=== PATIENT | male | born 2000 | race Hispanic/Latino ===

== ENCOUNTER 2021-10-08 15:27 | Emergency (ER) | payer OTHER ==
[~2021-10-08] VITALS: Ht 180.3 cm; Wt 80.9 kg
[2021-10-08] MEDS ORDERED: BENZ200C70 PO (20:39)
[2021-10-08] MEDS ORDERED: NAPR-837 PO (20:39)
[2021-10-08 21:15] VITALS: BP 121/83
== END 2021-10-08 21:17 | disposition home or self-care (01) ==
LOC: M ED 15:27
DX: U07.1 COVID-19 (principal); R07.9 Chest pain, unspecified

== ENCOUNTER 2022-01-23 14:41 | Inpatient (IN) | payer OTHER ==
[~2022-01-23] VITALS: Ht 180.3 cm; Wt 90.0 kg
[~2022-01-23 14:41] MED LIST: BENZ200C70 PO; NAPR-837 PO
[2022-01-23 15:47] LABS: HEMATOCRIT 43.3 % (42.0-52.0); HEMOGLOBIN 14.4 g/dl (13.5-17.5); MEAN CORPUSCULAR HEMOGLOBIN 29.1 pg (27.0-33.0); MEAN CORPUSCULAR HGB CONC 33.3 g/dl (32.0-36.5); MEAN CORPUSCULAR VOLUME 87.7 fl (80.0-96.0); PLATELET COUNT, AUTOMATED 283 10^3/uL (150-450); RED BLOOD COUNT 4.94 10^6/uL (4.30-6.10); WHITE BLOOD COUNT 6.9 10^3/uL (4.0-10.0)
[2022-01-23 16:16] LABS: AMPHETAMINES LEVEL URINE NEGATIVE (NEGATIVE); BARBITURATES URINE NEGATIVE (NEGATIVE); BENZODIAZEPINES URINE NEGATIVE (NEGATIVE); CANNABINOIDS URINE NEGATIVE (NEGATIVE); COCAINE METABOLITE URINE NEGATIVE (NEGATIVE); METHADONE URINE NEGATIVE (NEGATIVE); OPIATES URINE NEGATIVE (NEGATIVE); PHENCYCLIDINE URINE NEGATIVE (NEGATIVE)
[2022-01-23 16:39] LABS: ACETAMINOPHEN LEVEL < 2.0 UG/ML (10.0-30.0); ALBUMIN 4.2 GM/DL (3.2-5.2); ALT/SGPT 33 U/L (12-78); BILIRUBIN,DIRECT < 0.1 MG/DL (0.0-0.2); BILIRUBIN,TOTAL 0.2 MG/DL (0.2-1.0); BLOOD UREA NITROGEN 13 MG/DL (7-18); CALCIUM LEVEL 9.2 MG/DL (8.5-10.1); CARBON DIOXIDE LEVEL 31 MEQ/L (21-32); CHLORIDE LEVEL 102 MEQ/L (98-107); ETHYL ALCOHOL (ETHANOL) < 0.003 % (0.000-0.010); GLOMERULAR FILTRATION RATE > 60.0 (>60); GLUCOSE, FASTING 92 MG/DL (70-100); SALICYLATE LEVEL < 1.7 MG/DL (5.0-30.0); SODIUM LEVEL 137 MEQ/L (136-145); TOTAL PROTEIN 8.3 GM/DL (6.4-8.2)
[2022-01-23 17:38] LABS: RSV AMPLIFICATION NEGATIVE (NEGATIVE)
[2022-01-23] MEDS ORDERED: HOME MED LIST COMPLETE! XX SCH (18:15)
[2022-01-23] MEDS ORDERED: ACETAMINOPHEN TAB 650MG DOSE (2X325MG) PO PRN (20:05)
[2022-01-23] MEDS ORDERED: MOM 30ML SUSPENSION UDC PO PRN (20:05)
[2022-01-23] MEDS ORDERED: MAALOX 30 ML SUSP *UDC PO PRN (20:05)
[2022-01-23 22:18] VITALS: BP 122/64
[2022-01-23] MEDS: traZODone 50 MG TAB PO PRN (22:25)
[2022-01-24 06:18] VITALS: BP 114/59
[2022-01-24] MEDS: CitaloPRAM (CeleXA) 20 MG TAB PO SCH (14:12)
[2022-01-24 17:01] VITALS: BP 113/55
[2022-01-24] MEDS: traZODone 50 MG TAB PO PRN (20:31)
[2022-01-25 06:31] VITALS: BP 102/50
[2022-01-25] MEDS: CitaloPRAM (CeleXA) 20 MG TAB PO SCH (09:20)
[2022-01-25 16:37] VITALS: BP 122/59
[2022-01-25] MEDS: traZODone 50 MG TAB PO PRN (19:52)
[2022-01-26 06:27] VITALS: BP 123/56
[2022-01-26] MEDS: CitaloPRAM (CeleXA) 20 MG TAB PO SCH (09:32)
[2022-01-26 18:51] VITALS: BP 127/68
[2022-01-26] MEDS: traZODone 50 MG TAB PO PRN (20:17)
[2022-01-27 06:38] VITALS: BP 122/64
[2022-01-27] MEDS ORDERED: TRAZ-252 PO (08:32)
[2022-01-27] MEDS ORDERED: CELE20TA PO (08:32)
[2022-01-27] MEDS: CitaloPRAM (CeleXA) 20 MG TAB PO SCH (09:30)
== END 2022-01-27 12:53 | disposition home or self-care (01) | DRG 885 ==
LOC: M ED 14:41 → M ED INP 20:06 → M PSY 21:56
PROVIDERS: ADMIT Psychiatry & Neurology Psychiatry; ATTEND Psychiatry & Neurology Psychiatry
DX: F32.3 Major depressive disorder, single episode, severe with psychotic features (principal); R45.851 Suicidal ideations

== ENCOUNTER 2022-10-13 10:58 | Emergency (ER) | payer OTHER ==
[~2022-10-13] VITALS: Ht 180.3 cm; Wt 92.3 kg
[~2022-10-13 10:58] MED LIST changes: +CELE20TA PO; +TRAZ-252 PO
[2022-10-13 11:02] VITALS: BP 151/69
== END 2022-10-13 19:51 | disposition left against medical advice (07) ==
LOC: M ED 15:54
DX: Z53.21 Procedure and treatment not carried out due to patient leaving prior to being seen by health care provider (principal)